=== PATIENT | male | born 1965 | race Caucasian/White ===

== ENCOUNTER 2024-03-26 06:55 | Day surgery (SDC) | payer BC, SELFPAY ==
[2024-03-19 08:51] VITALS: BMI 29.4
--- NOTE | 2024-03-26 07:14 | MHC.SHP ---
Pre-Procedural Eval Section A - 24 Hr Update-Section A only Date of Service: 03/26/24 The patient is an INPATIENT: No Changes since office visit: No Cold of Flu in the past 2 weeks, No New Medical Problems, No Changes in Medication and No Patient answered all questions The patient has been examined within 24 hours of the surgical procedure. The History & Physical has been completed within 30 days and I have reviewed it.: Yes Section B - Complete if H&P > 30 days Chief Complaint: Encounter for screening for malignant neoplasm of Allergies: Allergies Allergy/AdvReac Type Severity Reaction Status Date / Time No Known Allergies Allergy Verified 03/19/24 08:51 [No Known Allergies*] Plan I have reviewed the history and physical and performed a pertinent physical examination on my patient. No changes have occurred unless specified. Time Spent With Patient Time: Total time managing care of this patient today ____ minutes.
[2024-03-26 07:16] VITALS: BP 152/88; PULSE 94; RESP 16; TEMP 36.6; O2SAT 96
[2024-03-26] MEDS: Lactated Ringers 1,000 ML 100 ML IVCONT (07:41)
--- NOTE | 2024-03-26 08:25 | P.CONAN_ITS ---
Documented by User: Marysol Aaron NP 03/25/24 09:27 HPI - Anesthesia Eval Consult details Narrative: 58yo M for Colonoscopy Long to awaken s/p pilonidal cyst excision 2014 (undiagnosed LUIS at that time) - required bipap and tx to [facility] for cardiac cath (negative) [facility] Past Medical History Medical History (Updated 03/19/24 @ 09:04 by Lisha Bull, SUZETTE) Diabetes type 2 Fatty liver [place] disease Sleep apnea HTN (hypertension) Surgical History Surgical History (Updated 03/26/24 @ 07:14 by Yumi Varela RN) [place] teeth removed History of excision of pilonidal cyst (07/05/14) Hx of hand surgery (1995) Hx of colonoscopy Hx of right inguinal hernia repair (1990) Social History Social History Are you a primary post acute care registered nurse to a significant other at home: No Do you presently have visiting nurse or other home services: No Patient Tobacco Use Status: Never used Tobacco Use of substances other than those prescribed or required for medical reasons: No Have you been hit, kicked, punched, or otherwise hurt by someone within the past year? If so, by whom?: No Adventism Healthcare Practices: Amish Are you DNR?: No Advance Directives: No (has HCP will look for it and bring dos) Advance Directives Information Provided: Yes Advance Directives on File: No Recently lost weight without trying: No Nutrition Risks: No Nutritional Risk Poor oral hygiene: No Meds Allergies Allergy/AdvReac Type Severity Reaction Status Date / Time No Known Allergies Allergy Verified 03/19/24 08:51 [No Known Allergies*] Home Medications ?Medication ?Instructions ?Recorded ?Confirmed ?Last Taken ?Type ascorbic acid (vitamin C) 500 mg 500 mg PO DAILY 03/19/24 03/19/24 Unknown History tablet (Vitamin C) glucosamine 2 tab PO DAILY 03/19/24 03/19/24 Unknown History sulfate-methylsulfonylmethane 500 mg-500 mg tablet losartan 25 mg tablet 25 mg PO BID 03/19/24 03/19/24 Unknown History metformin 500 mg tablet 500 mg PO TID 03/19/24 03/19/24 Unknown History multivitamin 1 tab PO DAILY 03/19/24 03/19/24 Unknown History Exam Height,Weight and Vital Signs: Height 5 ft 10 in Weight 92.986 kg Assessment and Plan Assessment Anesthesia Assessment: Chart Reviewed Documented by User: Manisha Mcgregor DO 03/26/24 08:30 PMFSH Past Medical History Medical History (Updated 03/19/24 @ 09:04 by Lisha Bull, SUZETTE) Diabetes type 2 Fatty liver [place] disease Sleep apnea HTN (hypertension) Family History Family history of problems with anesthesia: No Surgical History Surgical History (Updated 03/26/24 @ 07:14 by Yumi Varela RN) [place] teeth removed History of excision of pilonidal cyst (07/05/14) Hx of hand surgery (1995) Hx of colonoscopy Hx of right inguinal hernia repair (1990) History of Problems with Anesthesia: No Social History Social History Are you a primary post acute care registered nurse to a significant other at home: No Do you presently have visiting nurse or other home services: No Patient Tobacco Use Status: Never used Tobacco Use of substances other than those prescribed or required for medical reasons: No Have you been hit, kicked, punched, or otherwise hurt by someone within the past year? If so, by whom?: No Adventism Healthcare Practices: Amish Are you DNR?: No Advance Directives: No (has HCP will look for it and bring dos) Advance Directives Information Provided: Yes Advance Directives on File: No Recently lost weight without trying: No Nutrition Risks: No Nutritional Risk Poor oral hygiene: No Meds Allergies Allergy/AdvReac Type Severity Reaction Status Date / Time No Known Allergies Allergy Verified 03/19/24 08:51 [No Known Allergies*] Home Medications ?Medication ?Instructions ?Recorded ?Confirmed ?Last Taken ?Type ascorbic acid (vitamin C) 500 mg 500 mg PO DAILY 03/19/24 03/19/24 Unknown History tablet (Vitamin C) glucosamine 2 tab PO DAILY 03/19/24 03/19/24 Unknown History sulfate-methylsulfonylmethane 500 mg-500 mg tablet losartan 25 mg tablet 25 mg PO BID 03/19/24 03/19/24 Unknown History metformin 500 mg tablet 500 mg PO TID 03/19/24 03/19/24 Unknown History multivitamin 1 tab PO DAILY 03/19/24 03/19/24 Unknown History Exam Exam Date and Time: 03/26/24 0825 Height,Weight and Vital Signs: Height 5 ft 10 in Weight 92.986 kg Vital Signs Temperature 97.8 F 03/26/24 07:16 Pulse Rate 94 03/26/24 07:16 Respiratory Rate 16 03/26/24 07:16 Blood Pressure 152/88 H 03/26/24 07:16 Pulse Oximetry 96 03/26/24 07:16 Oxygen Delivery Method Room Air 03/26/24 07:16 Temperature 97.8 F 03/26/24 07:16 Pulse Rate 94 03/26/24 07:16 Respiratory Rate 16 03/26/24 07:16 Blood Pressure 152/88 H 03/26/24 07:16 Pulse Oximetry 96 03/26/24 07:16 Oxygen Delivery Method Room Air 03/26/24 07:16 Airway Mallampati Class: III TM Dist: >3cm Neck ROM: Full Loose/Missing/Broken Teeth: No (patient denies any loose or broken teeth ) Heart: S1S2 Lungs: CTAB Assessment and Plan Assessment Anesthesia Assessment: Anesthesia Plan Discussed and Chart Reviewed Final Anesthetic Review Family History of Problems with Anesthesia: No History of Problems with Anesthesia: No NPO: Yes ASA Class: II Final Preanesthetic Review: No Changes in Pt Med Stat, Meds/Allgs Chart Reviewed, Consent Obtained/Reviewed and Anes Risks/Benef Reviewed Patient Risk: Low Procedure Risk: Low Anesthetic Plan Anesthetic Plan: MAC: and Agree w/ Assess. and Plan Disposition: Standard PACU
[2024-03-26 08:57] VITALS: BP 124/81; PULSE 92; RESP 16; TEMP 36.7; O2SAT 95
[2024-03-26 09:12] VITALS: BP 132/86; PULSE 91; RESP 16; TEMP 36.7; O2SAT 96
--- NOTE | 2024-03-26 09:28 | OP_ITS ---
DATE OF SERVICE: 03/26/2024 SURGEON: Arley Benson MD INDICATIONS: Colon cancer screening. PREOPERATIVE DIAGNOSIS: POSTOPERATIVE DIAGNOSIS: PROCEDURE PERFORMED: Colonoscopy to the terminal ileum with biopsy and snare polypectomy. ESTIMATED BLOOD LOSS: COMPLICATIONS: ANESTHESIA: Monitored anesthesia care. ASSISTANTS: SPECIMENS: DESCRIPTION OF PROCEDURE: A history and physical was performed. The risks and benefits of the procedure were explained to the patient. Informed consent was obtained. The patient was placed in the left lateral decubitus position. A digital rectal exam was performed and was found to be normal. The Olympus pediatric video colonoscope was introduced into the rectum and advanced to the cecum. The cecum was identified by transillumination, palpation, and identification of ileocecal valve. Examination was performed. The scope was removed. He tolerated the procedure well and was returned to the recovery area in stable condition. FINDINGS: The terminal ileum was examined and appeared normal. The visualized colonic mucosa was normal. The quality of the prep was excellent. Three polyps were identified. All were less than 10 mm. The first was located at 50 cm and was removed with a biopsy forceps. Two other polyps at 35 and 15 cm measured approximately 6 mm. These were removed with a cold snare and recovered via suction. There was mild sigmoid diverticulosis and small internal hemorrhoids. IMPRESSION: Colon polyps. RECOMMENDATION: Follow up the biopsy results. MD NISHANT De La Vega/FOREIGN / [id number]
== END 2024-03-26 09:29 | disposition home or self-care (01) ==
PROVIDERS: PCP Pediatrics; Visit Provider Internal Medicine Gastroenterology
PROC: 0DJD8ZZ Inspection of Lower Intestinal Tract, Via Natural or Artificial Opening Endoscopic (ICD-10-PCS; CPT 45378; principal; 2024-03-26 08:30)
DX: Z12.11 Encounter for screening for malignant neoplasm of colon (principal); D12.5 Benign neoplasm of sigmoid colon; K57.30 Diverticulosis of large intestine without perforation or abscess without bleeding; K64.8 Other hemorrhoids; E11.9 Type 2 diabetes mellitus without complications; I10 Essential (primary) hypertension; K76.0 Fatty (change of) liver, not elsewhere classified; G47.33 Obstructive sleep apnea (adult) (pediatric); Z79.84 Long term (current) use of oral hypoglycemic drugs; Z79.899 Other long term (current) drug therapy
CPT/HCPCS: 45385; 45380; 88305; J2003; J2704

== ENCOUNTER 2024-11-25 16:20 | Emergency (ER) | payer OTHER, SELFPAY ==
--- OUTSIDE RECORDS SUMMARY | 2024-03-26 04:30 | XMS_ITS ---
Author Organization [facility] Address [address] [place] [id number] Care Team Providers Care Roving Changer Name Role Phone Baljinder Cadet MD Primary Care Provider Unavail Arley Mauro Jr Unavailable [phone] REASON FOR VISIT screening Encounters Encounter Location Date Provider Diagnosis [facility] [place] Outpatient [address] [place] [phone] 03/26/2024 Arley Benson Jr Colon cancer screening Z12.11 and Colon polyps K63.5 Assessments Encounter Date Diagnosis (ICD Code) Assessment Notes Treatment Notes Treatment Clinical Notes Section Notes 03/26/2024 Colon cancer screening (ICD-10 - Z12.11) 03/26/2024 Colon polyps (ICD-10 - K63.5) Plan Of Treatment No Information Progress Notes * NASIM RAMOSDOB:1965 (59 yo M)Acc No.[id number]:03/26/2024 COLON WITH MAC Patient: NASIM DAVENPORT Provider: Jean-Paul Benson MD :1965 A ge:58 Y S ex:Male Date:03/26/2024 Address:[address] [place], [place] [id number] Pcp:Baljinder Cadet MD Subjective: * Chief Complaints: * 1 . Screening. * Medical History: Objective: * Vitals: Assessment: * Assessment: 1. C olon cancer screening - Z12.11 (Primary) 2 . C olon polyps - K63.5? Plan: * Treatment: * Procedure Codes: 4 5385 LESION REMOVAL COLONOSCOPY, 69215 COLONOSCOPY AND BIOPSY, Modifiers: 59 , 6056F INTRVL 3+YRS PTS CLNSCP DOCD * * The named appointment provid er may or may not be the originator of this progress note, and it is not deemed complete until electronically signed by the appointment provider. Sign off status: Pending * Provider: Jean-Paul Benson MD Date: 0 03/26/2024 Generated for Marley neville/Marianne/Heathitting on: 0 11/25/2024 05:30 PM EDT
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
[2024-11-25 16:30] VITALS: BP 137/75; PULSE 107; RESP 16; TEMP 36.9; O2SAT 96
[2024-11-25 16:31] VITALS: BP 168/98; PULSE 117; O2SAT 97
[2024-11-25 16:36] VITALS: BP 157/91; PULSE 104; RESP 22; O2SAT 98; BMI 27.7
--- OUTSIDE RECORDS SUMMARY | 2024-11-25 17:30 | XMS_ITS | Clinical Summary ---
Author Organization [facility] Address [address] [place] [address] Phone Care Team Providers Care Corporate Specialist Name Role Phone Ariella Cadet MD Primary Care Provider [phone] Allergies Active Allergy Reactions Criticality Noted Date Comments Atorvastatin Palpitations High 11/27/2022 Empagliflozin 11/04/2024 Medications blood-glucose meter (ONETOUCH VERIO IQ METER MIS) Test blood sugars one time daily 12/31/19 19 Active glucosamine/ch ondroitin/C/Ma ng (GLUCOSAMINE 1500 COMPLEX ORAL) 1 tab bid Active Autolet lancing device Test blood sugars one time daily 12/31/19 19 Active MEN'S MULTI-VITAMIN ORAL 2 tabs daily Active OneTouch UltraSoft Lancets Test blood sugars once daily 02/07/20 20 Active losartan (COZAAR) 25 mg tablet TAKE 1 TABLET BY MOUTH TWICE A DAY 180 tablet 11/04/19 25 Active Additional Information Patient taking differently:25 mg oralDaily, Reported on 11/04/2024 losartan (COZAAR) 25 mg tablet TAKE 1 TABLET BY MOUTH TWICE A DAY 180 tablet 1 05/12/19 25 025 Discontinued Active Problems Problem Noted Date Diagnosed Date Colon cancer screening 05/05/2024 Overview (05/05/2024): 04/17 (Marcelino) polyps---7 yrs Hypercholesteremia 05/01/2023 Overview (02/24/2024): Intol lipitor Seasonal allergies 07/25/2020 Obesity (BMI 30-39.9) 12/22/2018 Controlled type 2 diabetes m jin without complication, without long-term current use of insulin ([facility]/HCC V24, [facility]/HCC V28) 09/26/2017 Essential hypertension 06/21/2016 Sleep apnea 07/13/2014 Overview (02/24/2024): Severe post op 07/06. Pulmonary edema felt to be related to negative pressure Transferred BS. Cath neg. Sleep study, sleep apnea. rec ncpap 10 mm Pilonidal cyst 09/21/2013 Overview (02/24/2024): Noted at PE 10/04 Gilbert syndrome 03/07/2010 Nonalcoholic fatty liver disease 03/07/2010 Nonspecific elevation of lev els of transaminase or lactic acid dehydrogenase (LDH) 09/17/2006 Overview (02/24/2024): 08/28--Hep screen, iron normal--u/s fatty liver--GI Chronic rhinitis 07/11/2005 Overview (02/24/2024): nighttime congestion Encounters Date Type Department Care Team Description 11/04/2024 8:45 AM EDT Office Visit Adult Medicine [address] [address] Ariella Cadet MD Controlled type 2 diabetes mellitus without complication, without long-term current use of insulin (CMS/HCC V24, CMS/HCC V28) (Primary Dx); Hypercholesteremia; Essential hypertension from Last 3 Months Immunizations Name Administration Dates Next Due Hepatitis A Adult (Havrix; V aqta) 19yo and older 10/31/2008,05/11/2008 Hepatitis B (Hmpjwpk-R-Rpqok , Recombivax HB-Adult) 19yo and older 10/31/2008,06/08/2008,05/11/2008 Influenza Quadravalent, MDCK , 0.5ml, preservative free (Flucelvax) 6mo and older 11/27/2022,01/08/2018 Influenza Quadravalent, MDCK , 0.5ml, with preservative (Flucelvax) 6mo and older 12/25/2021,12/26/2016 Influenza trivalent, 0.5mL, preservative free (Fluarix; FluLaval; Fluzone) ages 6mo and older (Afluria) 3 years and older 12/10/2019,12/13/2015,12/29/2014,2013,01/26/2013,01/03/2012,01/10/2011,1 Influenza, Unspecified 12/17/2018 Influenza, live, intranasal, trivalent (FluMist) 2yo to less than 50yo 01/15/2024 Planana SARS-CoV-2 COVID-19, mRNA, LNP-S, preservative free 01/03/2022,07/08/2020,06/17/2020 Td Tetanus diptheria (Tdvax) 7yo and older 01/14/2022 Td, Unspecified 12/14/2003 Tdap Tetanus diptheria acell ular pertussis (Boostrix; Adacel) 7yo and older 11/14/2011 Surgical History Surgery Date Site/Laterality Comments HERNIA REPAIR 1990 PROCEDURE: HISTORICAL HERNIA REPAIR/ING OTHER SURGICAL HISTORY 1995 PROCEDURE: MO PRQ SKELETAL FIX CARPO/METACARPAL FX DISLC THUMB COLONOSCOPY 04/18/2010 PROCEDURE: MO COLONOSCOPY FLX DX W/COLLJ SPEC WHEN PFRMD; COMMENT: Normal Medical History Medical History Date Comments Complication of cardiovascul ar infusion catheter 2014 DX:Complication of cardiovas cular infusion catheter; COMMENT: [facility] Sleep apnea DX:Sleep apnea Essential hypertension 06/21/2016 DX:Essent ial hypertension Controlled type 2 diabetes m ellitus without complication, without long-term current use of insulin ([facility] V24, [facility] V28) 09/26/2017 DX:Controlled type 2 diabet es mellitus without complication, without long-term current use of insulin ([facility]) Essential hypertension 06/21/2016 Family History Medical History Relation Name Comments Cataracts Father Colon polyps Father dx age > 80 Cataracts Mother Other: galbladder Mother Hypertension Other Blindness Neg Hx Glaucoma Neg Hx Macular degeneration Neg Hx Strabismus Neg Hx Relation Name Status Comments Father Mother Other Social History Tobacco Use Types Packs/Day Years Used Date Smoking Tobacco: Never Smokeless Tobacco: Never Tobacco Cessation:Counseling Given: Not Answered Alcohol Use Standard Drinks/Week Comments Yes 0 (1 standard drink = 0.6 oz pur e alcohol) Housing Instability Answer Date Recorde d Are you worried that in the next 2 months you may not have stable housing? No 04/29/2024 Food Access & Nutrition Answer Date Rec orded Do you have access to a vari ety of food including fruits and vegetables? Yes 04/29/2024 Access to Healthcare Answer Date Record ed Within the last 3 months, ho w many times did you visit the emergency department for your medical care? 0 04/29/2024 Health Literacy Answer Date Recorded How often do you need to hav e someone help you when you read instructions, pamphlets, or other written material from your doctor or pharmacy? Never 04/29/2024 Caregiver: How often do you need to have someone help you when you read instructions, pamphlets, or other written material from your doctor or pharmacy? Not on file 04/29/2024 Financial Risk Answer Date Recorded How hard is it for you to pa y for the very basics like food, housing, medical care, and air conditioning / heating? Patient declined 04/29/2024 Transportation Answer Date Recorded Has the lack of transportati on kept you from meetings, work, or from getting things needed for daily living? No Has the lack of transportati on kept you from medical appointments or from getting medications? No 04/29/2024 Social Isolation Answer Date Recorded How often do you feel lonely or isolated from th ose around you? Rarely 04/29/2024 Food Risk Answer Date Recorded Within the past 12 months we worried whether our food would run out before we got money to buy more. Never true 04/29/2024 Within the past 12 months th e food we bought just didn't last and we didn't have money to get more. Never true 04/29/2024 Dependent Care Answer Date Recorded Do you need help finding or paying for care for your loved ones. For example, child care giver or elderly care for an older adult? No 04/29/2024 Education Answer Date Recorded Do you think completing more education or training, like finishing a GED, going to college, or learning a trade, would be helpful for you? No 04/29/2024 Employment and Income Answer Date Recor ded During the last four weeks, have you been actively looking for work? Patient declined 04/29/2024 Living Situation Answer Date Recorded What is your living situation? 0 04/29/2024 Sex and Gender Information Value Date Recorded Sex Assigned at Not on file Legal Sex Male 8:48 AM EST Gender Identity Not on file Sexual Orientation Not on file Obstetrics History Last Filed Vital Signs Vital Sign Reading Time Taken Comments Blood Pressure 142/70 11/04/2024 8:47 AM EDT Pulse 82 11/04/2024 8:36 AM EDT Temperature 36.2 C (97.2 F) 11/04/2024 8:36 AM EDT Respiratory Rate - - Oxygen Saturation - - Inhaled Oxygen Concentration - - Weight 88.5 kg (195 lb) 11/04/2024 8:36 AM EDT Height 176.5 cm (5' 9.5 ) 11/04/2024 8:36 AM EDT Body Mass Index 28.38 11/04/2024 8:36 AM EDT Plan of Treatment Upcoming Encounters Date Type Department Care Team (Late st Contact Info) Description 02/07/2025 9:00 AM EST Office Visit Adult Medicine - [address] [phone] Destiny Lee NP [address] [place] [address] Health Maintenance Due Date Last Done Comments Diabetes: Annual Retina Eye Exam 08/25/1973 Pneumococcal Vaccine: 50+ Years (1 of 2 - PCV) 08/25/1982 Zoster Vaccines (1 of 2) 08/25/2013 Colorectal Cancer Screening: Stool Based Tests (FOBT/FIT) 02/24/2022 HIV Screening 02/24/2022 COVID-19 Vaccine ( season) 2024 01/03/2022, 02/28/2021, 07/08/2020, Additional history exists Influenza Vaccine (#1) 2024 , 11/27/2022, 12/25/2021, Additional history exists Diabetes: Blood Sugar Control Test (HGBA1C) 04/20/2025 10/18/2024, 03/19/2024, 09/26/2023, Additional history exists Social Influencers of Health Screening 04/29/2025 04/29/2024 Diabetes: Annual Urine Albumin-Creatinine Ratio (uACR) 10/18/2025 10/18/2024, 03/19/2024, 09/26/2023 Diabetes: Annual GFR (Glomerular Filtration Rate) 10/18/2025 10/18/2024, 03/19/2024, 09/26/2023, Additional history exists Hypertension/CHF/CAD Annual BMP Blood Test 10/18/2025 10/18/2024, 03/19/2024, 09/26/2023, Additional history exists Diabetes: Annual Foot Exam 11/05/202511/05, 05/05/2024, 10/30/2023 Cholesterol Screening (Lipid Panel) 10/18/2029 10/18/2024, 03/19/2024, 09/26/2023, Additional history exists DTaP,Tdap,and Td Vaccines (4 - Td or Tdap) 01/15/2032 01/14/2022, 11/14/2011, 12/14/2003 RSV Immunization Adult Patients (1 - 1-dose 75+ series) 08/25/2038 Hepatitis C Screening Completed 09/17/2006 Hepatitis A Vaccines Aged Out 10/31/2008, 05/11/19 09 No longer eligible based on patient's age to complete this topic Hepatitis B Vaccines Completed 10/31/2008, 06/08/2008, 05/11/2008 Colorectal Cancer Screening: Colonoscopy Discontinued 05/25/2022 Depression Screening Completed 04/29/2024 HIB Vaccines Aged Out No longer eligi ble based on patient's age to complete this topic HPV Vaccines Aged Out No longer eligi ble based on patient's age to complete this topic IPV Vaccines Aged Out No longer eligi ble based on patient's age to complete this topic MMR Vaccines Aged Out No longer eligi ble based on patient's age to complete this topic Meningococcal ACWY Vaccine Aged Out N o longer eligible based on patient's age to complete this topic Meningococcal B Vaccine Aged Out No l onger eligible based on patient's age to complete this topic RSV Immunization Patients Under 20 months Aged Out No longer eligible based on patient's age to complete this topic Varicella Vaccines Aged Out No longer eligible based on patient's age to complete this topic Procedures Procedure Name Priority Date/Time Associated Diagnosis Comments MICROALBUMIN CREATININE URINE RATIO Routine 10/18/2024 8:44 AM EDT Controlled type 2 diabetes mellitus without complication, without long-term current use of insulin ([facility] V24, CMS/[facility] V28) CBC WITH AUTO DIFFERENTIAL Routine 10/18/2024 8:34 AM EDT Essential hypertension PROSTATE SPECIFIC ANTIGEN SCREEN Routine 10/18/2024 8:34 AM EDT Screening for malignant neoplasm of prostate LIPID PANEL WITH REFLEX TO DIRECT LDL Routine 10/18/2024 8:34 AM EDT Controlled type 2 diabetes mellitus without complication, without long-term current use of insulin (CMS/HCC V24, CMS/[facility] V28) HEMOGLOBIN A1C Routine 10/18/2024 8:34 AM EDT Controlled type 2 diabetes mellitus without complication, without long-term current use of insulin (CMS/HCC V24, CMS/HCC V28) COMPREHENSIVE METABOLIC PANEL Routine 10/18/2024 8:34 AM EDT Controlled type 2 diabetes mellitus without complication, without long-term current use of insulin ([facility] V24, CMS/[facility] V28) CBC AND DIFFERENTIAL Routine 10/18/2024 8:34 AM EDT Essential hypertension DIABETES FOOT EXAM Routine 10/30/2023 COLONOSCOPY Routine 05/25/2022 HEPATITIS C SCREENING Routine 09/17/2006 from Last 3 Months or Most Recently Relevant to Health Maintenance Results * Microalbumin creatinine urine ratio (10/18/2024 8:44 AM EDT) Creatinine, Urine 68.0 mg/dL LAB CHEMISTRY METHOD 10/18/2024 2:17 PM EDT [facility] Microalb, Ur 7.8 0.0 - 29.0 mg/L LAB CHEMISTRY METHOD 10/18/2024 2:17 PM EDT [facility] Microalb/Creat Ratio 11 <30 mg/g creat LAB CHEMISTRY METHOD 10/18/2024 2:17 PM EDT [facility] Urine Urine specimen obtained by clean catch procedure / Unknown Non-blood Collection / Unknown 10/18/2024 8:44 AM EDT 10/18/2024 8:44 AM EDT us Ariella Cadet MD LAB URINE ORDERABLES Final Res ult Performing Organization Address [facility] Co de Phone Number [facility] [address] [place] [address], * Prostate specific antigen screen (10/18/2024 8:34 AM EDT) PSA 0.74 0.00 - 4.00 ng/mL LAB CHEMISTRY METHOD 10/18/2024 2:55 PM EDT [facility] Blood Venous blood specimen / Unknown Venipuncture / Unknown 10/18/2024 8:34 AM EDT 10/18/2024 8:34 AM EDT Narrative [facility] - 10/18/2024 2:55 PM EDT The Siemens Advia Centaur Chemiluminescent Immunoassay is used. Results obtained with different assay methods or kits cannot be used interchangeably. Results cannot be interpreted as absolute evidence of the presence or absence of malignant disease. us Ariella Cadet MD LAB BLOOD ORDERABLES Final Res ult Performing Organization Address City/[facility]/ZIP Co de Phone Number [facility] [address] [place] [address], [place] [phone] * (ABNORMAL) Lipid panel with reflex to direct LDL (10/18/2024 8:34 AM EDT) Cholesterol 187 0 - 200 mg/dL LAB CHEMISTRY METHOD 10/18/2024 12:58 PM EDT [facility] Triglycerides 78 0 - 150 mg/dL LAB CHEMISTRY METHOD 10/18/2024 12:58 PM EDT [facility] HDL 46 >=40 mg/dL LAB CHEMISTRY METHOD 10/18/2024 12:58 PM EDT [facility] LDL Calculated 125(H) 0 - 100 mg/dL LAB CHEMISTRY METHOD 10/18/2024 12:58 PM EDT [facility] VLDL Cholesterol Jm 15.6 mg/dL LAB CHEMISTRY METHOD 10/18/2024 12:58 PM EDT [facility] Non HDL Chol. (LDL+VLDL) 141 <145 mg/dL LAB CHEMISTRY METHOD 10/18/2024 12:58 PM EDT [facility] Chol/HDL Ratio 4.1 0.0 - 4.4 LAB CHEMISTRY METHOD 10/18/2024 12:58 PM EDT [facility] Blood Venous blood specimen / Unknown Venipuncture / Unknown 10/18/2024 8:34 AM EDT 10/18/2024 8:34 AM EDT us C Abel Cadet MD LAB BLOOD ORDERABLES Final Res ult [facility] [address] [place] [address], * (ABNORMAL) CBC auto differential (10/18/2024 8:34 AM EDT) WBC 7.7 4.8 - 10.8 K/[facility] HEMETOLOGY METHOD 10/18/2024 1:12 PM EDT [facility] RBC 5.20 4.50 - 5.50 M/[facility] LAB HEMETOLOGY METHOD 10/18/2024 1:12 PM EDT [facility] Hemoglobin 16.0 13.5 - 17.5 g/dL LAB HEMETOLOGY METHOD 10/18/2024 1:[facility] Hematocrit 48.3 42.0 - 54.0 % LAB HEMETOLOGY METHOD 10/18/2024 1:12 PM [facility] MCV 93.6 79.0 - 98.0 FL LAB HEMETOLOGY METHOD 10/18/2024 1:12 PM EDT [facility] MCH 31.0 27.0 - 32.0 pcg LAB HEMETOLOGY METHOD 10/18/2024 1:12 PM [facility] MCHC 33.1 32.0 - 37.0 g/dL LAB HEMETOLOGY METHOD 10/18/2024 1:12 PM [facility] RDW 12.6 11.0 - 15.0 % LAB HEMETOLOGY METHOD 10/18/2024 1:12 PM [facility] Platelets 259 130 - 400 K/mcL LAB HEMETOLOGY METHOD 10/18/2024 1:12 PM [facility] MPV 10.6 7.0 - 11.0 FL LAB HEMETOLOGY METHOD 10/18/2024 1:12 PM [facility] NRBC 0.0 <1.0 % LAB HEMETOLOGY METHOD 10/18/2024 1:12 PM [facility] NRBC Absolute 0.00 <0.10 K/mcL LAB HEMETOLOGY METHOD 10/18/2024 1:12 PM [facility] Neutrophils Relative 64.4 % LAB HEMETOLOGY METHOD 10/18/2024 1:12 PM [facility] Lymphocytes Relative 24.9 % LAB HEMETOLOGY METHOD 10/18/2024 1:12 PM [facility] Monocytes Relative 8.4 % LAB HEMETOLOGY METHOD 10/18/2024 1:12 PM EDT [facility] Eosinophils Relative 1.4 % LAB HEMETOLOGY METHOD 10/18/2024 1:12 PM EDT [facility] Basophils Relative 0.4 % LAB HEMETOLOGY METHOD 10/18/2024 1:12 PM EDT [facility] Immature Granulocytes Relative 0.5 % LAB HEMETOLOGY METHOD 10/18/2024 1:12 PM EDT [facility] Neutrophils Absolute 4.98 1.50 - 7.00 K/mcL LAB HEMETOLOGY METHOD 10/18/2024 1:12 PM EDT [facility] Lymphocytes Absolute 1.93 1.00 - 5.00 K/mcL LAB HEMETOLOGY METHOD 10/18/2024 1:12 PM EDT [facility] Monocytes Absolute 0.65 0.20 - 1.00 K/mcL LAB HEMETOLOGY METHOD 10/18/2024 1:12 PM EDT [facility] Eosinophils Absolute 0.11 0.00 - 0.50 K/mcL LAB HEMETOLOGY METHOD 10/18/2024 1:12 PM EDT [facility] Basophils Absolute 0.03 0.00 - 0.20 K/mcL LAB HEMETOLOGY METHOD 10/18/2024 1:12 PM EDT [facility] Immature Granulocytes Absolute 0.04(H) 0.00 - 0.03 K/mcL LAB HEMETOLOGY METHOD 10/18/2024 1:12 PM EDT [facility] Blood Venous blood specimen / Unknown Venipuncture / Unknown 10/18/2024 8:34 AM EDT 10/18/2024 8:34 AM EDT us C Abel Cadet MD LAB BLOOD ORDERABLES Final Res ult [facility] [address] [place] [address], [place] [phone] * Hemoglobin A1c (10/18/2024 8:34 AM EDT) [facility] Hemoglobin A1C 6.4 <6.5 % LAB CHEMISTRY METHOD 10/18/2024 7:05 PM EDT [facility] Mean Bld Glu Estim. 137 mg/dL LAB CHEMISTRY METHOD 10/18/2024 7:05 PM EDT [facility] Blood Venous blood specimen / Unknown Venipuncture / Unknown 10/18/2024 8:34 AM EDT 10/18/2024 8:34 AM EDT [facility] Abel Cadet MD LAB BLOOD ORDERABLES Final Res ult [facility] [address] [place] [address], * (ABNORMAL) Comprehensive metabolic panel (10/18/2024 8:34 AM EDT) [facility] Sodium 138 133 - 145 mmol/L LAB CHEMISTRY METHOD 10/18/2024 12:58 PM [facility] Potassium 4.8 3.5 - 5.5 mmol/L LAB CHEMISTRY METHOD 10/18/2024 12:58 PM [facility] Chloride 106 96 - 110 mmol/L LAB CHEMISTRY METHOD 10/18/2024 12:58 PM [facility] CO2 29 21 - 32 mmol/L LAB CHEMISTRY METHOD 10/18/2024 12:58 PM [facility] Anion Gap 3 3 - 11 LAB CHEMISTRY METHOD 10/18/2024 12:58 PM [facility] Glucose 144(H) 70 - 100 mg/dL LAB CHEMISTRY METHOD 10/18/2024 12:58 PM [facility] BUN 21 5 - 25 mg/dL LAB CHEMISTRY METHOD 10/18/2024 12:58 PM [facility] Creatinine 1.10 0.70 - 1.30 mg/dL LAB CHEMISTRY METHOD 10/18/2024 12:58 PM [facility] eGFR 76 >=60 mL/min/1. 73m2 LAB CHEMISTRY METHOD 10/18/2024 12:58 PM [facility] Comment:Calculation based on the Chronic Kidney Disease Epidemiology Collaboration (CKD-EPI) equation refit without adjustment for race. BUN/Creatinine Ratio 19.1 LAB CHEMISTRY METHOD 10/18/2024 12:58 PM [facility] Calcium 10.2 8.5 - 10.5 mg/dL LAB CHEMISTRY METHOD 10/18/2024 12:58 PM [facility] AST (SGOT) 21 10 - 42 unit/L LAB CHEMISTRY METHOD 10/18/2024 12:58 PM [facility] ALT (SGPT) 51 10 - 60 unit/L LAB CHEMISTRY METHOD 10/18/2024 12:58 PM [facility] Alkaline Phosphatase 37(L) 42 - 121 unit/L LAB CHEMISTRY METHOD 10/18/2024 12:58 PM [facility] Total Protein 7.3 6.0 - 8.0 g/dL LAB CHEMISTRY METHOD 10/18/2024 12:58 PM [facility] Albumin 4.2 3.2 - 5.0 g/dL LAB CHEMISTRY METHOD 10/18/2024 12:58 PM [facility] Total Bilirubin 1.5(H) 0.0 - 1.4 mg/dL LAB CHEMISTRY METHOD 10/18/2024 12:58 PM [facility] Blood Venous blood specimen / Unknown Venipuncture / Unknown 10/18/2024 8:34 AM EDT 10/18/2024 8:34 AM EDT C Abel Cadet MD LAB BLOOD ORDERABLES Final Res ult [email or web address] [address] [place] [address], * Diabetes Foot Exam (10/30/2023) [facility] Diabetes: Annual Foot Exam Abstracted Historical Provider HEALTH MAINTENANCE Final Result * Colonoscopy (05/25/2022) [facility] Colonoscopy No Interpretation , Abstracted Anatomical Region Laterality Modality Other [facility] Provider HEALTH MAINTENANCE Final Result * Hepatitis C Screening (09/17/2006) [facility] Hepatitis C Screening Abstracted [facility] Provider HEALTH MAINTENANCE Final Result from Last 3 Months or Most Recently Relevant to Health Maintenance Insurance [facility] Care Teams Corporate Specialist Relationship Specialty Start Date End Date Ariella Cadet MD [address] [place] [id number] PCP - General 07/16/1997
--- OUTSIDE RECORDS SUMMARY | 2024-11-25 17:30 | XMS_ITS | Continuity of Care Document ---
Author Organization [facility] Address [address] [address] Insurance Providers Payer Plan Claims Address Claims Phone Policy Number Group Number Relation Employer Guarantor Name Guarantor Guarantor Address Guarantor Phone [place] [address], [place] [address] [id number] [facility] Blue O [employer]UE [employer] CLAIMS, [address], [place] [address] tel:[phone] 33 Problems Unknown Problems Results Test Result Date/Time Value / Unit Interp. Refere nce Range Comp. Metabolic Panel (14)[3 [id number]] Collected: 08/04/2024 03:51 PM Specimen Received: 08/04/2024 05:00 AM Source: [facility] Glucose [[id number]] 08/05/2024 02:01 PM 139 mg/dL H 70-99 mg/dL BUN [[id number]] 08/05/2024 02:01 PM 19 mg/dL 8-2 7 mg/dL Creatinine [[id number]] 08/05/2024 02:03 PM 1.01 mg/dL 0.76-1.27 mg/dL eGFR [[id number]] 08/05/2024 02:03 PM 85 mL/min/1.73 >59 mL/min/1.73 BUN/Creatinine Ratio [[id number]] 08/05/2024 02:03 PM 19 10-24 Sodium [[id number]] 08/05/2024 02:01 PM 141 mmol/L 134-144 mmol/L Potassium [[id number]] 08/05/2024 02:03 PM 5.2 mmol/L 3.5-5.2 mmol/L Chloride [[id number]] 08/05/2024 02:01 PM 103 mmol/L 96-106 mmol/L Carbon Dioxide, Total [500699] 08/05/2024 02:11 PM 20 mmol/L 20-29 mmol/L Calcium [535003] 08/05/2024 02:00 PM 10.2 mg/dL 8.6-10.2 mg/dL Protein, Total [[id number]] 08/05/2024 02:03 PM 7.6 g/dL 6.0-8.5 g/dL Albumin [[id number]] 08/05/2024 02:00 PM 4.7 g/dL 3.8-4.9 g/dL Globulin, Total [[id number]] 08/05/2024 02:03 PM 2.9 g/dL 1.5-4.5 g/dL Bilirubin, Total [087948] 08/05/2024 02:01 PM 1.2 mg/dL 0.0-1.2 mg/dL Alkaline Phosphatase [408611] 08/05/2024 02:01 PM 42 IU/L L 44-121 IU/L AST (SGOT) [[id number]] 08/05/2024 02:01 PM 29 IU/L 0-40 IU/L ALT (SGPT) [[id number]] 08/05/2024 02:00 PM 35 IU/L 0-44 IU/L Lipid Panel[[id number]] Collected: 08/04/2024 03:51 PM Specimen Received: 08/04/2024 05:00 AM Source: [facility] Cholesterol, Total [[id number]] 08/05/2024 02:11 PM 177 mg/dL 100-199 mg/d L Triglycerides [[id number]] 08/05/2024 02:11 PM 63 mg/dL 0-149 mg/dL HDL Cholesterol [[id number]] 08/05/2024 02:13 PM 52 mg/dL >39 mg/dL VLDL Cholesterol Jm [[id number]] 08/05/2024 02:13 PM 12 mg/dL 5-40 mg/dL LDL Chol Calc (NIH) [148874] 08/05/2024 02:13 PM 113 mg/dL H 0-99 mg/dL Albumin/Creatinine Ratio,Uri ne[[id number]] Collected: 08/04/2024 03:51 PM Specimen Received: 08/04/2024 05:00 AM Source: [facility] Creatinine, Urine [[id number]] 08/07/2024 03:47 PM 101.3 mg/dL Not Estab. m g/dL Albumin, Urine [[id number]] 08/07/2024 03:43 PM 7.3 ug/mL Not Estab. ug/mL Alb/Creat Ratio [[id number]] 08/07/2024 03:47 PM 7 mg/g creat 0-29 mg/g creat Normal: 0 - 29 Moderately in creased: 30 - 300 Severely increased: >300 Hemoglobin A1c[[id number]] Collected: 08/04/2024 03:51 PM Specimen Received: 08/04/2024 05:00 AM Source: [facility] Hemoglobin A1c [[id number]] 08/05/2024 10:57 AM 6.5 % H 4.8-5.6 % . Prediabetes: 5.7 - 6.4 Di abetes: >6.4 Glycemic control for adults with diabetes: 7.0 Allergies, adverse reactions, alerts No known allergies and adverse reactions Medications No administered medications reported Vital Signs No vital signs reported Social History No smoking Hx information available
--- OUTSIDE RECORDS SUMMARY | 2024-11-25 17:30 | XMS_ITS | Patient Health Record ---
Author Organization [facility] Address [address] [place] [address] Care Team Providers Care Director Of Casino Name Role Phone Helio FERNÁNDEZ, Baljinder Primary Care Provider Unavail able Arley Benson Jr Unavailable [phone] Allergies No Known Allergies Results Component Value Reference Range Notes Pathology Reviewed date:03/30/2024 03:08:09 PM Interpretation: Performing Lab:[facility], [address] [place] [id number] Notes/Report: Reason For Referral No Information Medications Medication SIG (Take, Route, Frequency, Duration) Notes Start Date End Date Status Zinc 30 MG 1 tablet Orally Once a day for 30 day(s) Active Vitamin C 500 MG 1 tablet Orally Once a day Active Glucosamine 500 MG 1 capsule with meals Orally once a day Active Blood Sugar Balance - as directed Orally 2 qd Active MiraLax (colon prep) 17 GM/SCOOP mixed with Gatorade or Crystal Light Orally begin at 5:00 p.m. the day before the procedure for 1 day 03/04/2024 Active metFORMIN HCl ER 500 MG Oral for 90 Active Multivitamin - 1 tablet Orally Once a day for 30 day(s) Active Losartan Potassium 25 MG Oral for 90 Active Social History Tobacco Use: Social History Observation Description Date Details (start date - stop date) Never Smoker NA - NA Tobacco Use/Smoking Question Answer Notes Patient is a nonsmoker Alcohol Screen Question Answer Notes Did you have a drink containing alcohol in the p ast year? No Points 0 Interpretation Negative Problems Problem Type SNOMED Code ICD Code Onset Dates Problem Status W/U Status Risk Notes Problem 912502375 Colon cancer screening (Z12.11) Active confirmed Problem 503890788 Encounter for other preprocedural examination (Z01.818) Active confirmed Problem 813418426609462 longterm (current) use of oral hypoglycemic drugs (Z79.84) Active confirmed Vital Signs Blood pressure diastolic 00 mm Hg 03/04/2024 Height 5 ft 9 in in 03/04/2024 Blood pressure systolic 00 mm Hg 03/04/2024 Weight 212 lbs 03/04/2024 BMI 31.30 kg/m2 03/04/2024 Encounters Encounter Location Date Provider Diagnosis [facility] [place] [address] [place] [phone] 03/26/2024 Arley Benson Jr Colon cancer screening Z12.11 and Colon polyps K63.5 [facility] [address] [place] [address] Drive [address] [place] [phone] 03/04/2024 Arley Benson Jr Colon cancer screening Z12.11 ; Encounter for other preprocedural examination Z01.818 and adjunct faculty for medical terminology (current) use of oral hypoglycemic drugs Z79.84 [facility] [address] [place] [address] [phone] 03/30/2024 Arley Benson Jr [facility] [address] [place] [address] Drive [address] [place] [phone] 04/01/2024 Arley Benson Jr Assessments Encounter Date Diagnosis (ICD Code) Assessment Notes Treatment Notes Treatment Clinical Notes Section Notes 03/26/2024 Colon cancer screening (ICD-10 - Z12.11) 03/26/2024 Colon polyps (ICD-10 - K63.5) 03/04/2024 Colon cancer screening (ICD-10 - Z12.11) Colonoscopy material was printed We discussed colonoscopy today including risks and benefits of the procedure. He understands these and agrees to proceed. This will be scheduled at his convenience. He is advised stop metformin the day before the procedure. 03/04/2024 Encounter for other preprocedural examination (ICD-10 - Z01.818) We discussed colonoscopy today including risks and benefits of the procedure. He understands these and agrees to proceed. This will be scheduled at his convenience. He is advised stop metformin the day before the procedure. 03/04/2024 longterm (current) use of oral hypoglycemic drugs (ICD-10 - Z79.84) We discussed colonoscopy today including risks and benefits of the procedure. He understands these and agrees to proceed. This will be scheduled at his convenience. He is advised stop metformin the day before the procedure. Plan Of Treatment Future Test Test Name Order Date COLONOSCOPY 03/04/2024 Insurance Providers Payer Name Payer Address Payer Phone Subscriber Number Group Number Insured Name Patient Relationship to Insured Coverage Start Date Coverage End Date [facility] [employer] CLAIM[employer] [address] [place] [address] [id number] NASIM RAMOS Self - patient is the insured Medical (General) History Medical History History ICD Code Diabetes mellitus type 2 Fatty liver with Gilbert's syndrome Hypertension LUIS, no CPAP Cardiac catheterization foll owing pilonidal cyst excision with postop hypoxia prior to LUIS diagnosis, no significant coronary disease Surgical History Surgery Date(Month/Year) RIH repair 1990 right thumb pinning 1995 colonoscopy (2 home test-since 2015) 201 0 pilonidal cystectomy 2014
--- OUTSIDE RECORDS SUMMARY | 2024-11-25 17:30 | XMS_ITS ---
Author Name [facility] Organization Unknown Care Team Organization Name Specialty Phone Email Start Date End [facility] Baljinder Cadet [facility] 01/29/2022 11/10/2023
--- OUTSIDE RECORDS SUMMARY | 2024-11-25 17:30 | XMS_ITS | Continuity of Care Document ---
Author Organization [facility] Address [address] [address] Insurance Providers Payer Plan Claims Address Claims Phone Policy Number Group Number Relation Employer Guarantor Name Guarantor Guarantor Address Guarantor Phone [place] [address], [place] [id number] [facility] Blue O [employer] CLAIMS, [address], [place] [address] tel:[phone] 33 Problems Unknown Problems Results Test Result Date/Time Value / Unit Interp. Refere nce Range Comp. Metabolic Panel (14)[3 [id number]] Collected: 08/04/2024 03:51 PM Specimen Received: 08/04/2024 05:00 AM Source: [facility] Glucose [[id number]] 08/05/2024 02:01 PM 139 mg/dL H 70-99 mg/dL BUN [[id number]] 08/05/2024 02:01 PM 19 mg/dL 8-2 7 mg/dL Creatinine [[id number]] 08/05/2024 02:03 PM 1.01 mg/dL 0.76-1.27 mg/dL eGFR [[id number]] 08/05/2024 02:03 PM 85 mL/min/1.73 >59 mL/min/1.73 BUN/Creatinine Ratio [[id number]] 08/05/2024 02:03 PM 19 10-24 Sodium [754694] 08/05/2024 02:01 PM 141 mmol/L 134-144 mmol/L Potassium [957155] 08/05/2024 02:03 PM 5.2 mmol/L 3.5-5.2 mmol/L Chloride [[id number]] 08/05/2024 02:01 PM 103 mmol/L 96-106 mmol/L Carbon Dioxide, Total [299842] 08/05/2024 02:11 PM 20 mmol/L 20-29 mmol/L Calcium [794198] 08/05/2024 02:00 PM 10.2 mg/dL 8.6-10.2 mg/dL Protein, Total [[id number]] 08/05/2024 02:03 PM 7.6 g/dL 6.0-8.5 g/dL Albumin [[id number]] 08/05/2024 02:00 PM 4.7 g/dL 3.8-4.9 g/dL Globulin, Total [548684] 08/05/2024 02:03 PM 2.9 g/dL 1.5-4.5 g/dL Bilirubin, Total [[id number]] 08/05/2024 02:01 PM 1.2 mg/dL 0.0-1.2 mg/dL Alkaline Phosphatase [117011] 08/05/2024 02:01 PM 42 IU/L L 44-121 IU/L AST (SGOT) [[id number]] 08/05/2024 02:01 PM 29 IU/L 0-40 IU/L ALT (SGPT) [[id number]] 08/05/2024 02:00 PM 35 IU/L 0-44 IU/L Lipid Panel[[id number]] Collected: 08/04/2024 03:51 PM Specimen Received: 08/04/2024 05:00 AM Source: [facility] Cholesterol, Total [[id number]] 08/05/2024 02:11 PM 177 mg/dL 100-199 mg/d L Triglycerides [236267] 08/05/2024 02:11 PM 63 mg/dL 0-149 mg/dL HDL Cholesterol [[id number]] 08/05/2024 02:13 PM 52 mg/dL >39 mg/dL VLDL Cholesterol Jm [[id number]] 08/05/2024 02:13 PM 12 mg/dL 5-40 mg/dL LDL Chol Calc (NIH) [030410] 08/05/2024 02:13 PM 113 mg/dL H 0-99 mg/dL Albumin/Creatinine Ratio,Uri ne[[id number]] Collected: 08/04/2024 03:51 PM Specimen Received: 08/04/2024 05:00 AM Source: [facility] Creatinine, Urine [[id number]] 08/07/2024 03:47 PM 101.3 mg/dL Not Estab. m g/dL Albumin, Urine [[id number]] 08/07/2024 03:43 PM 7.3 ug/mL Not Estab. ug/mL Alb/Creat Ratio [[id number]] 08/07/2024 03:47 PM 7 mg/g creat 0-29 mg/g creat Normal: 0 - 29 Moderately in creased: 30 - 300 Severely increased: >300 Hemoglobin A1c[[id number]] Collected: 08/04/2024 03:51 PM Specimen Received: 08/04/2024 05:00 AM Source: [facility] Hemoglobin A1c [[id number]] 08/05/2024 10:57 AM 6.5 % H 4.8-5.6 % . Prediabetes: 5.7 - 6.4 Di abetes: >6.4 Glycemic control for adults with diabetes: 7.0 Allergies, adverse reactions, alerts No known allergies and adverse reactions Medications No administered medications reported Vital Signs No vital signs reported Social History No smoking Hx information available
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
[2024-11-25 18:12] VITALS: BP 161/80; PULSE 96; RESP 16; TEMP 36.9; O2SAT 96
[2024-11-25 18:57] VITALS: BP 161/80; PULSE 96; RESP 16; TEMP 36.9; O2SAT 96
== END 2024-11-25 18:58 | disposition home or self-care (01) ==
PROVIDERS: Emergency Provider Emergency Medicine; PCP Pediatrics
DX: S13.4XXA Sprain of ligaments of cervical spine, initial encounter (principal); R07.89 Other chest pain; V53.5XXA Driver of pick-up truck or van injured in collision with car, pick-up truck or van in traffic accident, initial encounter; Y93.9 Activity, unspecified; Y92.410 Unspecified street and highway as the place of occurrence of the external cause; Y99.2 Volunteer activity
CPT/HCPCS: 71046; 72100; 99283; 99284

== ENCOUNTER → 2024-11-25 17:24 | Outpatient (BNV) | payer BC, SELFPAY | PROVIDERS: Emergency Provider Emergency Medicine; PCP Pediatrics; Visit Provider Radiology Diagnostic Radiology | DX: M54.50 Low back pain, unspecified (principal); M41.86 Other forms of scoliosis, lumbar region; Z04.3 Encounter for examination and observation following other accident | CPT/HCPCS: 71046; 72100 ==